=== PATIENT | female | born 1945 | race Caucasian/White ===

== ENCOUNTER → 2018-06-12 | Outpatient (CLI) | payer MEDICARE | END | disposition home or self-care (01) | LOC: ROC 06-06 13:19 | PROVIDERS: ATTEND Radiology Radiation Oncology | DX: D33.3 Benign neoplasm of cranial nerves (principal); H91.91 Unspecified hearing loss, right ear; R26.89 Other abnormalities of gait and mobility | CPT/HCPCS: 99204; G0463 ==

== ENCOUNTER 2018-06-18 10:44 | Outpatient (CLI) | payer MEDICARE ==
[2018-06-18] MEDS ORDERED: GADOBUTROL 10 MMOL/10 ML PFS ONE (11:48)
== END 2018-06-18 23:59 | disposition home or self-care (01) ==
LOC: CFH 10:44
PROVIDERS: ATTEND Radiology Radiation Oncology
DX: D33.3 Benign neoplasm of cranial nerves (principal)
CPT/HCPCS: 70553; A9585

== ENCOUNTER 2018-12-26 10:51 | Outpatient (CLI) | payer MEDICARE ==
[2018-12-26] MEDS ORDERED: GADOBUTROL 10 MMOL/10 ML VIAL ONE (11:00)
== END 2018-12-26 23:59 | disposition home or self-care (01) ==
LOC: CFH 10:51
PROVIDERS: ATTEND Radiology Radiation Oncology
DX: D33.3 Benign neoplasm of cranial nerves (principal); H70.91 Unspecified mastoiditis, right ear
CPT/HCPCS: 70553; A9585

== ENCOUNTER 2018-12-29 08:29 | Outpatient (CLI) | payer MEDICARE | END 2018-12-29 23:59 | disposition home or self-care (01) | LOC: ROC 08:29 | PROVIDERS: ATTEND Radiology Radiation Oncology | DX: Z09 Encounter for follow-up examination after completed treatment for conditions other than malignant neoplasm (principal); Z86.011 Personal history of benign neoplasm of the brain; Z88.0 Allergy status to penicillin; Z88.5 Allergy status to narcotic agent | CPT/HCPCS: 99213; G0463 ==

== ENCOUNTER 2019-12-25 07:29 | Outpatient (CLI) | payer MEDICARE | END 2019-12-25 23:59 | disposition home or self-care (01) | LOC: ROC 07:29 | PROVIDERS: ATTEND Radiology Radiation Oncology | DX: D33.3 Benign neoplasm of cranial nerves (principal) | CPT/HCPCS: 99213; G0463 ==